=== PATIENT | male | born 1965 | race Two or more races ===

== ENCOUNTER 2018-03-19 00:22 | Emergency (ER) | payer SELFPAY ==
[~2018-03-19] VITALS: Ht 170.2 cm; Wt 68.0 kg
[2018-03-19] MEDS ORDERED: KETOROLAC TROMETHAMINE 30 MG INJ ONE (01:08)
[2018-03-19] MEDS ORDERED: KETOROLAC TROMETHAMINE 30 MG INJ IM ONE (01:15)
--- NOTE | 2018-03-19 06:21 | NUR ---
Patient discharged to home in stable conditon. Written and verbal after care instructions given. Patient verbalizes understanding of instructions.
[2018-03-19 06:22] VITALS: BP 148/66
== END 2018-03-19 06:23 | disposition home or self-care (01) ==
LOC: ER 00:27
DX: S22.31XA Fracture of one rib, right side, initial encounter for closed fracture (principal); Z88.0 Allergy status to penicillin; Z59.0 Homelessness; W17.2XXA Fall into hole, initial encounter; Y93.89 Activity, other specified; Y92.89 Other specified places as the place of occurrence of the external cause; Y99.8 Other external cause status
CPT/HCPCS: 71101; A4663; J1885

== ENCOUNTER 2018-05-03 03:12 | Emergency (ER) | payer SELFPAY ==
[~2018-05-03] VITALS: Ht 175.3 cm; Wt 68.0 kg
--- NOTE | 2018-05-03 03:33 | NUR ---
Patient is cursing at staff, screaming, threatening staff. Security at bedside for this patients due to his threats towards staff. Patient is refusing care at this time. He was hostile towards staff upon initial evaluation attempt and refused all aspects of assessment.
--- NOTE | 2018-05-03 04:33 | NUR ---
Patient given written and verbal discharge instructions. Patient verbalizes understanding of instructions. Patient is ambulatory with steady gait. Refuses offer of group home placement. Patient given list of available shelters in surrounding area.
== END 2018-05-03 04:34 | disposition home or self-care (01) ==
LOC: ER 03:16
DX: S22.31XA Fracture of one rib, right side, initial encounter for closed fracture (principal); S90.822A Blister (nonthermal), left foot, initial encounter; S90.821A Blister (nonthermal), right foot, initial encounter; Z88.0 Allergy status to penicillin; Z59.0 Homelessness; X58.XXXA Exposure to other specified factors, initial encounter; Y93.89 Activity, other specified; Y92.89 Other specified places as the place of occurrence of the external cause; Y99.8 Other external cause status
CPT/HCPCS: 71045; 73620 ×2; 99284; A4663